=== PATIENT | male | born 1970 | race Caucasian/White ===

== ENCOUNTER 2024-02-21 12:38 | Outpatient (OUT) | payer OTHER, SELFPAY ==
--- NOTE | 2024-02-21 12:51 | CT_ITS ---
[address] [address] Patient Name: VAIBHAV SOTO MRN: [id number] date: 1970 Sex: M Assigned Patient Location: CT Current Patient Location: Accession/Order Number: [id number] Exam Date: 02/21/2024 13:46 Report Date: 02/23/2024 06:26 At the request of: DIAN MARTELL Procedure: CT abdomen pelvis w con EXAMINATION: CT abdomen pelvis w con HISTORY: Left Lower Quadrant Pain R10.32, Blood In Stool K92.1 ; 30 pound weight loss since COMPARISON: No relevant comparison available. TECHNIQUE: Axial, Coronal, and Sagittal images were obtained without and/or with IV contrast as indicated by examination type. Dose reduction techniques were achieved by using automated exposure control and/or adjustment of mA and/or kV according to patient size and/or use of iterative reconstruction technique. FINDINGS: LUNG BASES: No visible pulmonary or pleural disease. LIVER: No enlargement, atrophy, suspicious density, or significant focal lesion. BILIARY: No dilatation or calcification. PANCREAS: No lesion, fluid collection, or abnormal duct dilatation. SPLEEN: No enlargement or focal lesion. ADRENALS: No mass or enlargement. KIDNEYS: Several small nonobstructing kidney stones bilaterally. A few small hypodensities favoring cysts. Unremarkable ureters. BOWEL/MESENTERY: Masslike enlargement of the proximal descending colon, 8.0 x 8.0 x 7.6 cm. No bowel obstruction. Mild surrounding mesenteric edema. No appreciable adenopathy. AORTA/VASCULAR: No aneurysm or dissection. RETROPERITONEUM: No mass or adenopathy. LYMPH NODES: No adenopathy. URINARY BLADDER: No visible focal wall thickening, lesion, or calculus. PELVIC ORGANS: No visible mass. Pelvic organs appropriate for patient age. ABDOMINAL WALL: No mass or hernia. BONES: Mild anterior wedging of T11 vertebral body. Grade 1 anterior listhesis of L4 on 5 and of L5 on S1 secondary to bilateral pars interarticularis defects at both levels. Moderate-marked disc space narrowing at L4-5, L5-S1. Left hip replacement. OTHER: Negative. CT/CT abdomen pelvis w con IMPRESSION: 1. Masslike enlargement of the proximal descending colon suspected to represent neoplasm.No bowel obstruction. 2. No appreciable lymphadenopathy or evidence of metastatic disease. 3. Nonobstructing bilateral nephrolithiasis. 4. Mild compression fracture of T11 suspected to be remote. 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 Electronically authenticated by: AQUILINO PETERSON Date: 02/23/2024 06:26
== END 2024-02-21 12:39 | disposition home or self-care (01) ==
LOC: CT 12:43
PROVIDERS: PCP Family Medicine; Visit Provider Family Medicine
DX: R10.32 Left lower quadrant pain (principal); K92.1 Melena; N20.0 Calculus of kidney; K63.89 Other specified diseases of intestine
CPT/HCPCS: 74177; Q9967